=== PATIENT | female | born 1930 | race Asian ===

== ENCOUNTER 2017-11-15 21:40 | Inpatient (IN) | payer OTHER ==
[~2017-11-15] VITALS: Ht 147.3 cm; Wt 43.0 kg
[2017-11-15 22:50] LABS: BASOPHIL % 0.2 % (0-2); PLATELET COUNT 223 x10^3mcL (130-400); RED CELL DISTRIBUTION WIDTH 13.7 % (11.5-14.5)
[2017-11-15 23:02] LABS: CALCIUM 8.6 mg/dL (8.5-10.1); CHLORIDE SERUM 108 mmol/L (98-107); CREATININE SERUM 1.1 mg/dL (0.6-1.0); GLUCOSE SERUM 116 mg/dL (74-106); POTASSIUM SERUM 4.7 mmol/L (3.5-5.1); SODIUM SERUM 142 mmol/L (136-145)
[2017-11-15 23:07] LABS: ALBUMIN 3.8 g/dL (3.4-5.0); ALKALINE PHOSPHATASE 112 U/L (46-116); ALT/SGPT 16 U/L (14-59); AST/SGOT 20 U/L (15-37); TOTAL PROTEIN, SERUM 7.2 g/dL (6.4-8.2)
[2017-11-16] MEDS ORDERED: DITROPAN XL5 MG PO ×2 (00:19→07:12)
[2017-11-16 02:23] LABS: CHOLESTEROL/HDL RATIO 3.3; MAGNESIUM 2.5 mg/dL (1.8-2.4)
[2017-11-16 02:23] LABS: microscopic required? YES; urine erythrocyte 2+ (NEGATIVE)
[2017-11-16 02:31] LABS: AMPHETAMINE QUAL UR NONE DETECTED (See below)
[2017-11-16 02:33] VITALS: BP 174/84
[2017-11-16 05:24] VITALS: BP 166/80
[2017-11-16 06:17] LABS: CALCIUM 8.3 mg/dL (8.5-10.1); CARBON DIOXIDE 26.3 mmol/L (21-32); CHLORIDE SERUM 110 mmol/L (98-107); CREATININE SERUM 1.1 mg/dL (0.6-1.0); GLUCOSE SERUM 137 mg/dL (74-106); POTASSIUM SERUM 4.2 mmol/L (3.5-5.1); SODIUM SERUM 142 mmol/L (136-145)
[2017-11-16 06:23] LABS: BASOPHIL % 0.1 % (0-2); PLATELET COUNT 197 x10^3mcL (130-400); RED CELL DISTRIBUTION WIDTH 13.3 % (11.5-14.5)
[2017-11-16 06:24] LABS: T3 TOTAL 0.84 ng/mL
[2017-11-16 06:43] LABS: FREE T4 0.99 ng/dL (0.76-1.46); T4(THYROXINE) 5.9 ug/dL (4.7-13.3)
[2017-11-16 09:40] VITALS: BP 170/78
[2017-11-16 11:18] VITALS: BP 164/68
[2017-11-16 14:16] VITALS: BP 157/68
[2017-11-16 21:46] VITALS: BP 131/71
[2017-11-17 05:14] VITALS: BP 114/75
[2017-11-17 06:45] LABS: BASOPHIL % 0.3 % (0-2); PLATELET COUNT 179 x10^3mcL (130-400); RED CELL DISTRIBUTION WIDTH 13.8 % (11.5-14.5)
[2017-11-17 07:05] LABS: CALCIUM 7.5 mg/dL (8.5-10.1); CARBON DIOXIDE 26.5 mmol/L (21-32); CHLORIDE SERUM 112 mmol/L (98-107); GLUCOSE SERUM 114 mg/dL (74-106); MAGNESIUM 2.2 mg/dL (1.8-2.4); PHOSPHOROUS 2.6 mg/dL (2.5-4.9); POTASSIUM SERUM 4.3 mmol/L (3.5-5.1); SODIUM SERUM 145 mmol/L (136-145)
[2017-11-17 09:05] VITALS: BP 161/66
[2017-11-17 11:43] VITALS: BP 167/69
[2017-11-17 12:23] VITALS: BP 108/63
[2017-11-17 16:40] VITALS: BP 163/77
[2017-11-17 20:39] VITALS: BP 155/75
[2017-11-18 01:38] VITALS: BP 156/72
[2017-11-18 05:55] VITALS: BP 173/74
[2017-11-18 07:02] LABS: CALCIUM 7.2 mg/dL (8.5-10.1); CHLORIDE SERUM 107 mmol/L (98-107); CREATININE SERUM 0.9 mg/dL (0.6-1.0); GLUCOSE SERUM 142 mg/dL (74-106); MAGNESIUM 1.9 mg/dL (1.8-2.4); PHOSPHOROUS 2.7 mg/dL (2.5-4.9); POTASSIUM SERUM 3.8 mmol/L (3.5-5.1); SODIUM SERUM 139 mmol/L (136-145)
[2017-11-18 07:06] LABS: PLATELET COUNT 142 x10^3mcL (130-400); RED CELL DISTRIBUTION WIDTH 13.3 % (11.5-14.5)
[2017-11-18 07:17] LABS: BASOPHIL % 0 % (0-2)
[2017-11-18 09:23] VITALS: BP 119/71
[2017-11-18 13:25] VITALS: BP 187/75
[2017-11-18 17:45] VITALS: BP 149/74
[2017-11-18 21:21] VITALS: BP 149/63
[2017-11-19 02:38] VITALS: Ht 147.3 cm; Wt 43.0 kg
[2017-11-19 05:57] VITALS: BP 148/58
[2017-11-19 06:11] LABS: BASOPHIL % 0.1 % (0-2); PLATELET COUNT 132 x10^3mcL (130-400); RED CELL DISTRIBUTION WIDTH 13.5 % (11.5-14.5)
[2017-11-19 06:57] LABS: CALCIUM 8.1 mg/dL (8.5-10.1); CARBON DIOXIDE 27.4 mmol/L (21-32); CHLORIDE SERUM 107 mmol/L (98-107); CREATININE SERUM 0.9 mg/dL (0.6-1.0); GLUCOSE SERUM 111 mg/dL (74-106); MAGNESIUM 2.1 mg/dL (1.8-2.4); PHOSPHOROUS 3.1 mg/dL (2.5-4.9); POTASSIUM SERUM 3.8 mmol/L (3.5-5.1); SODIUM SERUM 138 mmol/L (136-145)
[2017-11-19 08:02] VITALS: BP 146/59
[2017-11-19 13:37] VITALS: BP 154/60
[2017-11-19 17:18] VITALS: BP 150/56
[2017-11-19 20:43] VITALS: BP 167/83
[2017-11-20 03:33] LABS: BASOPHIL % 0.4 % (0-2); PLATELET COUNT 133 x10^3mcL (130-400); RED CELL DISTRIBUTION WIDTH 15.8 % (11.5-14.5)
[2017-11-20 05:39] VITALS: BP 126/78
[2017-11-20 06:09] LABS: BASOPHIL % 0.4 % (0-2); PLATELET COUNT 141 x10^3mcL (130-400)
[2017-11-20 06:27] LABS: CALCIUM 7.9 mg/dL (8.5-10.1); CARBON DIOXIDE 29.3 mmol/L (21-32); CHLORIDE SERUM 107 mmol/L (98-107); CREATININE SERUM 0.9 mg/dL (0.6-1.0); GLUCOSE SERUM 91 mg/dL (74-106); PHOSPHOROUS 2.7 mg/dL (2.5-4.9); POTASSIUM SERUM 3.5 mmol/L (3.5-5.1); SODIUM SERUM 139 mmol/L (136-145)
[2017-11-20 06:32] LABS: RED CELL DISTRIBUTION WIDTH 15.8 % (11.5-14.5)
[2017-11-20 08:17] VITALS: BP 177/79
[2017-11-20 17:16] VITALS: BP 131/68
[2017-11-20 20:51] VITALS: BP 177/77
[2017-11-21 05:14] VITALS: BP 164/77
[2017-11-21 06:03] LABS: BASOPHIL % 0.1 % (0-2); PLATELET COUNT 162 x10^3mcL (130-400)
[2017-11-21 06:12] LABS: RED CELL DISTRIBUTION WIDTH 15.3 % (11.5-14.5)
[2017-11-21 06:54] LABS: CALCIUM 7.6 mg/dL (8.5-10.1); CARBON DIOXIDE 28.8 mmol/L (21-32); CHLORIDE SERUM 106 mmol/L (98-107); CREATININE SERUM 0.7 mg/dL (0.6-1.0); GLUCOSE SERUM 113 mg/dL (74-106); POTASSIUM SERUM 3.6 mmol/L (3.5-5.1); SODIUM SERUM 141 mmol/L (136-145)
[2017-11-21 09:45] VITALS: BP 179/76
[2017-11-21 17:04] VITALS: BP 178/70
[2017-11-21 20:12] VITALS: BP 127/70
[2017-11-22 05:34] VITALS: BP 172/74
[2017-11-22 06:09] LABS: BASOPHIL % 0.3 % (0-2); PLATELET COUNT 182 x10^3mcL (130-400)
[2017-11-22 06:23] LABS: CALCIUM 8.5 mg/dL (8.5-10.1); CHLORIDE SERUM 106 mmol/L (98-107); CREATININE SERUM 0.7 mg/dL (0.6-1.0); GLUCOSE SERUM 117 mg/dL (74-106); MAGNESIUM 2.1 mg/dL (1.8-2.4); POTASSIUM SERUM 3.9 mmol/L (3.5-5.1); SODIUM SERUM 142 mmol/L (136-145)
[2017-11-22 06:26] LABS: RED CELL DISTRIBUTION WIDTH 15.4 % (11.5-14.5)
[2017-11-22 09:57] VITALS: BP 177/71
[2017-11-22] MEDS ORDERED: NOR5 PO (15:05)
[2017-11-22] MEDS ORDERED: DIT5 PO (15:06)
== END 2017-11-22 18:45 | DRG 480 ==
LOC: ED 21:40 → DU 11-16 00:28 → MU 11-19 16:25
PROVIDERS: Emergency Medicine; Family Medicine; Internal Medicine; Neuromusculoskeletal Medicine, Sports Medicine
PROC: 0QS604Z Reposition Right Upper Femur with Internal Fixation Device, Open Approach (ICD-10-PCS; principal; 2017-11-17 13:30)
PROC: 30233N1 Transfusion of Nonautologous Red Blood Cells into Peripheral Vein, Percutaneous Approach (ICD-10-PCS; 2017-11-19)
DX: S72.141A Displaced intertrochanteric fracture of right femur, initial encounter for closed fracture (principal); N17.0 Acute kidney failure with tubular necrosis; N39.0 Urinary tract infection, site not specified; R64 Cachexia; E83.41 Hypermagnesemia; R32 Unspecified urinary incontinence; R31.9 Hematuria, unspecified; D64.9 Anemia, unspecified; E78.1 Pure hyperglyceridemia; E83.51 Hypocalcemia; Z68.22 Body mass index [BMI] 22.0-22.9, adult; W18.39XA Other fall on same level, initial encounter; Y93.89 Activity, other specified; Y92.89 Other specified places as the place of occurrence of the external cause
CPT/HCPCS: 83880; 84439; 97110-GP; 97116-GP; 97530-GP; 97535-GP; C1713; J0690; J0696; J1170; J1644; J2270; J2405; J2704; J3010; J3490; J7030; J7040; J7042; J7120; P9016; Q0092; Q0163